=== PATIENT | female | born 1995 | race Caucasian/White ===

== ENCOUNTER 2017-05-06 11:29 | Emergency (ER) | payer SELFPAY ==
[~2017-05-06] VITALS: Wt 67.0 kg
[2017-05-06 13:02] LABS: ADD UMIC YES; UR ASCORBIC ACID NEGATIVE (NEGATIVE); UR BILIRUBIN (Dip) NEGATIVE (NEGATIVE); UR BLOOD (Dip) NEGATIVE (NEGATIVE); UR CLARITY SLIGHTLY CLOUDY (CLEAR); UR COLOR YELLOW (YELLOW); UR GLUCOSE (Dip) NEGATIVE (NEGATIVE); UR KETONES (Dip) NEGATIVE (NEGATIVE); UR LEUKOCYTE ESTERASE (Dip) 2+ Leu/ul (NEGATIVE); UR MUCUS FEW /HPF (NONE SEEN); UR NITRITE (Dip) NEGATIVE (NEGATIVE); UR RBC 5 /HPF (0-5); UR SPECIFIC GRAVITY (Dip) 1.026 (1.003-1.030); UR SQUAMOUS EPITHELIAL CELL FEW /HPF (FEW); UR TOTAL PROTEIN (Dip) NEGATIVE (NEGATIVE); UR UROBILINOGEN (Dip) 1+ mg/dL (NEGATIVE)
[2017-05-06] MEDS ORDERED: NITR-58 PO (13:08)
[2017-05-06] MEDS ORDERED: PHEN-538 PO (13:08)
--- NOTE | 2017-05-06 13:15 | ERD ---
ER Documentation Chief Complaint Date/Time DATE: 05/06/17 TIME: 13:13 Chief Complaint ABD PAIN X 2 WEEKS HPI 22-year-old female Presents to the emergency room complaining of intermittent pelvic pain for the past 2 weeks. Patient states the pain is very strong rating it moderate in severity. She denies any fever, dysuria. She states her last menstrual period was in April since she is on injection contraceptive. She denies any and medications for this. Denies hematuria ROS All systems reviewed and are negative except as per history of present illness. Medications Home Meds Active Scripts Phenazopyridine Hcl* (Pyridium*) 200 Mg Tab, 200 MG PO TID, #10 TAB Prov:LANDON SETH PA-C 05/06/17 Nitrofurantoin Monohyd Macrocr* (Macrobid*) 100 Mg Capsr, 100 MG PO BID for 5 Days, CAP Prov:LANDON SETH PA-C 05/06/17 Allergies Allergies: Coded Allergies: No Known Allergy (Unverified , 05/06/17) PMhx/Soc Medical and Surgical Hx: pt denies Medical Hx, pt denies Surgical Hx Hx Alcohol Use: Yes (occ) Hx Substance Use: No Hx Tobacco Use: No Smoking Status: Never smoker Physical Exam Vitals Vital Signs Date Time Temp Pulse Resp B/P Pulse Ox O2 Delivery O2 Flow Rate FiO2 05/06/17 11:48 98.0 71 18 115/58 99 Physical Exam Const: [] Head: Atraumatic Eyes: Normal Conjunctiva ENT: Normal External Ears, Nose and Mouth. Neck: Full range of motion..~ No meningismus. Resp: Clear to auscultation bilaterally Cardio: Regular rate and rhythm, no murmurs Abd: Tenderness in the suprapubic region Skin: No petechiae or rashes Back: No midline or flank tenderness Ext: No cyanosis, or edema Neur: Awake and alert Psych: Normal Mood and Affect Results 24 hrs Laboratory Tests Test 05/06/17 12:35 Urine Color YELLOW Urine Clarity SLIGHTLY CLOUDY Urine pH 6.0 Urine Specific [place] 1.026 Urine Ketones NEGATIVEmg/dL Urine Nitrite NEGATIVEmg/dL Urine Bilirubin NEGATIVEmg/dL Urine Urobilinogen 1+mg/dL Urine Leukocyte Esterase 2+Tere/ul Urine Microscopic RBC 5/HPF Urine Microscopic WBC 20/HPF Urine Squamous Epithelial Cells FEW/HPF Urine Mucus FEW/HPF Urine Hemoglobin NEGATIVEmg/dL Urine Glucose NEGATIVEmg/dL Urine Total Protein NEGATIVEmg/dl Procedures/MDM 22-year-old female presents with pelvic pain likely due to a urinary tract infection. Urinalysis is done in the ED and showed evidence of infection. Urine test was negative. Patient will be given prescription for Macrobid and Pyridium. Discussed the follow-up with [facility]. Low suspicion for ruptured ovarian cyst, torsion, pyelonephritis. Stable to be discharged home. She understands and agrees with this plan Departure Diagnosis: Primary Impression: UTI (urinary tract infection) Condition: Stable Patient Instructions: Understanding Urinary Tract Infections (UTIs) Additional Instructions: Visite a smith roxanne yip para un EXAMEN.Regrese a estas instalaciones si no se mejora lin esperbamos o lin le dijimos. Regrese a estas instalaciones si no se mejora lin esperbamos o lin le dijimos. [place] toda la medicina last y lin se le indic. LANDON SETH PA-C May 06, 2017 13:15
== END 2017-05-06 13:42 | disposition home or self-care (01) ==
LOC: FTE 11:29
DX: N39.0 Urinary tract infection, site not specified (principal)
CPT/HCPCS: 81001; 99283

== ENCOUNTER 2017-09-17 13:24 | Emergency (ER) | END 2017-09-17 16:36 | disposition home or self-care (01) ==

== ENCOUNTER 2017-10-29 18:25 | Emergency (ER) | END 2017-10-29 19:10 | disposition home or self-care (01) ==

== ENCOUNTER 2018-06-02 23:44 | Emergency (ER) | END 2018-06-03 03:02 | disposition home or self-care (01) ==